=== PATIENT | male | born 1985 | race Hispanic/Latino ===

== ENCOUNTER 2023-09-20 11:58 | Inpatient (IN) | payer OTHER ==
[~2023-09-20] VITALS: Ht 157.5 cm; Wt 75.3 kg
[2023-09-20 13:14] LABS: BASOPHILS # (AUTO) 0.04 K/uL (0.00-0.20); BASOPHILS % (AUTO) 0.7 % (0.0-5.0); EOSINOPHILS # (AUTO) 0.15 K/uL (0.00-0.70); EOSINOPHILS % (AUTO) 2.4 % (0.0-8.0); HEMATOCRIT 40.2 % (42-54); IMMATURE GRANULOCYTE ABSOLUTE 0.03 K/uL (0-1); LYMPHOCYTES # (AUTO) 1.9 K/uL (1.0-4.8); LYMPHOCYTES % (AUTO) 30.1 % (21.0-51.0); MEAN CORPUSCULAR HGB CONC 35.6 g/dL (32.0-36.0); MEAN CORPUSCULAR VOLUME 95.7 fL (79-99); MONOCYTES # (AUTO) 0.4 K/uL (0.1-1.0); MONOCYTES % (AUTO) 7.2 % (3.0-13.0); NEUTROPHILS # (AUTO) 3.6 K/uL (1.8-7.7); NEUTROPHILS % (AUTO) 59.1 % (40.0-77.0); PLATELET COUNT (AUTO) 271 K/uL (130-400); RED CELL DISTRIBUTION WIDTH 10.6 % (11.0-15.5); WHITE BLOOD COUNT (AUTO) 6.1 K/uL (4.8-10.8)
[2023-09-20 13:32] LABS: ALBUMIN 2.9 g/dL (3.5-5.0); BILIRUBIN,TOTAL 0.3 mg/dL (0.2-1.0); CREATININE 0.6 mg/dL (0.5-1.3); POTASSIUM 3.9 mmol/L (3.5-5.1); TOTAL PROTEIN, SERUM 7.8 g/dL (6.0-8.3)
[2023-09-20 14:04] LABS: APPEARANCE,URINE CLEAR (CLEAR); BILIRUBIN,URINE NEGATIVE (NEGATIVE); GLUCOSE, URINE (UA) >=1000 mg/dL (NEGATIVE); KETONES,URINE NEGATIVE (NEGATIVE); LEUKOCYTE ESTERASE ,URINE NEGATIVE Leu/uL (NEGATIVE); NITRATE,URINE NEGATIVE (NEGATIVE); OCCULT BLOOD,URINE NEGATIVE (NEGATIVE); PH,URINE 7.5 (5.0-8.0); PROTEIN,URINE NEGATIVE (NEGATIVE); UROBILINOGEN,URINE 0.2 mg/dL (0.2-1.0)
[2023-09-20 14:05] LABS: ADD UA MICROSCOPIC YES; COLOR,URINE LIGHT-YELLOW (YELLOW)
[2023-09-20 14:06] LABS: BACTERIA,URINE RARE /HPF (None Seen); RBC,URINE 0-1 /HPF (0-1)
[2023-09-20] MEDS: 0.9%NACL 1000ML 1,000 ML IV ONE (14:09)
[2023-09-20] MEDS: INSULIN HUMULIN R 100 UNIT/ML 3ML IV ONE (15:09)
[2023-09-20] MEDS: CEFEPIME HCL 2 GM VIAL IVPB SCH (15:44)
[2023-09-20] MEDS ORDERED: HYDRALAZINE 20MG/ML VIAL IV PRN (16:00)
[2023-09-20] MEDS: AMLODIPINE 5 MG TAB PO ONE (16:14)
[2023-09-20 16:24] LABS: AMPHET/METH SCREEN,URINE NEGATIVE (NEGATIVE); BARBITURATE SCREEN, URINE NEGATIVE (NEGATIVE); BENZODIAZEPINES SCREEN,URINE NEGATIVE (NEGATIVE); CANNABINOID SCREEN,URINE POSITIVE (NEGATIVE); COCAINE SCREEN,URINE NEGATIVE (NEGATIVE); OPIATE SCREEN,URINE NEGATIVE (NEGATIVE); PHENCYCLIDINE SCREEN,URINE NEGATIVE (NEGATIVE)
[2023-09-20 16:26] LABS: HEMOGLOBIN A1C 12.2 % (4.0-6.0)
[2023-09-20] MEDS: THIAMINE HCL 100 MG, FOLIC ACID 1 MG, M.V.I. IV [ADULT] 10 ML in 0.9%NACL 1000ML 1,000 ML IV SCH (16:27)
[2023-09-20] MEDS ORDERED: CHLORDIAZEPOXIDE HCL 25 MG CAP PO PRN (16:30)
[2023-09-20] MEDS ORDERED: ACETAMINOPHEN 500 MG TABLET PO PRN (16:30)
[2023-09-20] MEDS ORDERED: PHARMACY COMMUNICATION MISC PRN (16:30)
[2023-09-20] MEDS ORDERED: LORAZEPAM 2 MG/ML 1 ML VIAL IVP PRN (16:30)
[2023-09-20 16:34] LABS: THYROID STIMULATING HORMONE 1.41 uIU/mL (0.36-3.74)
[2023-09-20 17:30] VITALS: O2SAT 97
[2023-09-20 17:33] VITALS: BP 133/95; PULSE 71; RESP 17
[2023-09-20] MEDS: INSULIN HUMULIN R 100 UNIT/ML 3ML SQ SCH (18:00)
[2023-09-20 19:13] VITALS: O2SAT 98
[2023-09-20 20:07] VITALS: BP 153/92; PULSE 71; RESP 19
[2023-09-20] MEDS: DOXYCYCLINE HYCLATE 100 MG TABLET PO SCH (20:44)
[2023-09-20] MEDS: FAMOTIDINE 20MG VIAL IV SCH (20:44)
[2023-09-20 23:32] VITALS: BP 145/90; PULSE 81; RESP 18
[2023-09-21] VITALS (9 sets, daily range): BP systolic 119–148; BP diastolic 71–86; PULSE 48–88; RESP 16–18; O2SAT 99
[2023-09-21 06:32] LABS: BASOPHILS # (AUTO) 0.04 K/uL (0.00-0.20); BASOPHILS % (AUTO) 0.5 % (0.0-5.0); EOSINOPHILS # (AUTO) 0.25 K/uL (0.00-0.70); EOSINOPHILS % (AUTO) 3.4 % (0.0-8.0); HEMATOCRIT 39.4 % (42-54); IMMATURE GRANULOCYTE ABSOLUTE 0.05 K/uL (0-1); LYMPHOCYTES % (AUTO) 27.5 % (21.0-51.0); MEAN CORPUSCULAR HEMOGLOBIN 33.8 pg (27.0-33.0); MEAN CORPUSCULAR HGB CONC 35.5 g/dL (32.0-36.0); MEAN CORPUSCULAR VOLUME 95.2 fL (79-99); MONOCYTES # (AUTO) 0.6 K/uL (0.1-1.0); MONOCYTES % (AUTO) 7.7 % (3.0-13.0); NEUTROPHILS # (AUTO) 4.4 K/uL (1.8-7.7); NEUTROPHILS % (AUTO) 60.2 % (40.0-77.0); PLATELET COUNT (AUTO) 257 K/uL (130-400); RED BLOOD CELL COUNT(AUTO) 4.14 MIL/uL (4.50-6.20); RED CELL DISTRIBUTION WIDTH 10.6 % (11.0-15.5); WHITE BLOOD COUNT (AUTO) 7.3 K/uL (4.8-10.8)
[2023-09-21 06:50] LABS: ALBUMIN 2.7 g/dL (3.5-5.0); BILIRUBIN,TOTAL 0.3 mg/dL (0.2-1.0); CREATININE 0.5 mg/dL (0.5-1.3); POTASSIUM 3.7 mmol/L (3.5-5.1); TOTAL PROTEIN, SERUM 7.3 g/dL (6.0-8.3)
[2023-09-21] MEDS: CEFTRIAXONE 2GM VIAL IVPB SCH (08:59)
[2023-09-21] MEDS: AMLODIPINE 5 MG TAB PO SCH (09:00)
[2023-09-21] MEDS: INSULIN HUMULIN R 100 UNIT/ML 3ML SQ SCH (11:27)
[2023-09-21] MEDS: KETOROLAC 30MG VIAL (30MG/ML) IVP ONE (13:14)
[2023-09-21] MEDS ORDERED: VANCOMYCIN KIT 1 GM/250 ML IV.KIT IV SCH (13:30)
[2023-09-21] MEDS ORDERED: VANCOMYCIN PROTOCOL PER PHARMACY IV SCH (13:30)
[2023-09-21] MEDS: VANCOMYCIN 2GM/500 ML BAG 500 ML IV ONE (13:44)
[2023-09-21] MEDS: INSULIN GLARGINE 100 UNITS/ML 10 ML VIAL SQ SCH (20:37)
[2023-09-21] MEDS: HYDROCODONE/ACETAMINOPHEN 5/325 MG TAB PO PRN (20:40)
[2023-09-21] MEDS: VANCOMYCIN 1.25 GM/250 ML BAG 250 ML IV SCH (22:59)
[2023-09-22] VITALS (8 sets, daily range): BP systolic 114–134; BP diastolic 71–85; PULSE 76–85; RESP 17–18; O2SAT 94–99
[2023-09-22 05:29] LABS: BASOPHILS # (AUTO) 0.04 K/uL (0.00-0.20); BASOPHILS % (AUTO) 0.7 % (0.0-5.0); EOSINOPHILS % (AUTO) 5.1 % (0.0-8.0); HEMATOCRIT 39.7 % (42-54); IMMATURE GRANULOCYTE ABSOLUTE 0.05 K/uL (0-1); LYMPHOCYTES # (AUTO) 2.6 K/uL (1.0-4.8); LYMPHOCYTES % (AUTO) 44.1 % (21.0-51.0); MEAN CORPUSCULAR HEMOGLOBIN 33.9 pg (27.0-33.0); MEAN CORPUSCULAR HGB CONC 35.5 g/dL (32.0-36.0); MEAN CORPUSCULAR VOLUME 95.4 fL (79-99); MONOCYTES # (AUTO) 0.7 K/uL (0.1-1.0); MONOCYTES % (AUTO) 12.5 % (3.0-13.0); NEUTROPHILS # (AUTO) 2.2 K/uL (1.8-7.7); NEUTROPHILS % (AUTO) 36.8 % (40.0-77.0); PLATELET COUNT (AUTO) 281 K/uL (130-400); RED BLOOD CELL COUNT(AUTO) 4.16 MIL/uL (4.50-6.20); RED CELL DISTRIBUTION WIDTH 10.6 % (11.0-15.5); WHITE BLOOD COUNT (AUTO) 5.9 K/uL (4.8-10.8)
[2023-09-22 05:51] LABS: CREATININE 0.5 mg/dL (0.5-1.3); POTASSIUM 3.9 mmol/L (3.5-5.1); VANCOMYCIN TROUGH 13.3 UG/ML (10.0-20.0)
[2023-09-22] MEDS: ENOXAPARIN SODIUM 40 MG/0.4 ML SYRINGE SQ SCH (08:25)
[2023-09-22] MEDS ORDERED: COMPOUND IV REFRIGERATED 1 EACH IVSOLN MISC PRN (12:30)
[2023-09-23 04:37] VITALS: BP 113/73; PULSE 69; RESP 18
[2023-09-23 05:01] LABS: BASOPHILS # (AUTO) 0.03 K/uL (0.00-0.20); BASOPHILS % (AUTO) 0.4 % (0.0-5.0); EOSINOPHILS # (AUTO) 0.26 K/uL (0.00-0.70); EOSINOPHILS % (AUTO) 3.6 % (0.0-8.0); HEMATOCRIT 38.5 % (42-54); IMMATURE GRANULOCYTE ABSOLUTE 0.08 K/uL (0-1); LYMPHOCYTES # (AUTO) 2.7 K/uL (1.0-4.8); LYMPHOCYTES % (AUTO) 37.3 % (21.0-51.0); MEAN CORPUSCULAR HEMOGLOBIN 33.6 pg (27.0-33.0); MEAN CORPUSCULAR HGB CONC 36.1 g/dL (32.0-36.0); MONOCYTES # (AUTO) 0.8 K/uL (0.1-1.0); MONOCYTES % (AUTO) 10.6 % (3.0-13.0); NEUTROPHILS # (AUTO) 3.4 K/uL (1.8-7.7); PLATELET COUNT (AUTO) 309 K/uL (130-400); RED BLOOD CELL COUNT(AUTO) 4.14 MIL/uL (4.50-6.20); RED CELL DISTRIBUTION WIDTH 10.6 % (11.0-15.5); WHITE BLOOD COUNT (AUTO) 7.1 K/uL (4.8-10.8)
[2023-09-23 05:12] LABS: CREATININE 0.5 mg/dL (0.5-1.3); POTASSIUM 3.6 mmol/L (3.5-5.1)
[2023-09-23 08:00] VITALS: BP 121/17; PULSE 83; RESP 17; O2SAT 96
[2023-09-23] MEDS: LISINOPRIL 2.5 MG TABLET PO SCH (09:22)
[2023-09-23 12:00] VITALS: BP 136/92; PULSE 78; RESP 18
[2023-09-23] MEDS ORDERED: DOXY100T2 PO (14:42)
[2023-09-23] MEDS ORDERED: METF-444 PO (14:48)
[2023-09-23] MEDS ORDERED: INSLAN SQ (14:48)
== END 2023-09-23 16:30 | disposition home or self-care (01) | DRG 603 ==
LOC: EDH 11:58 → EDHIP 16:06 → OBSVTOIN 16:06 → 4CH 16:43 → DAHIP 16:52 → 4CH 16:55
PROVIDERS: ADMIT Internal Medicine; ATTEND Internal Medicine
PROC: 0Y993ZZ Drainage of Right Lower Extremity, Percutaneous Approach (ICD-10-PCS; principal; 2023-09-22)
DX: L03.115 Cellulitis of right lower limb (principal); L02.415 Cutaneous abscess of right lower limb; E11.65 Type 2 diabetes mellitus with hyperglycemia; E66.9 Obesity, unspecified; I10 Essential (primary) hypertension; K76.0 Fatty (change of) liver, not elsewhere classified; B95.61 Methicillin susceptible Staphylococcus aureus infection as the cause of diseases classified elsewhere; N05.9 Unspecified nephritic syndrome with unspecified morphologic changes; F10.90 Alcohol use, unspecified, uncomplicated; Z68.30 Body mass index [BMI] 30.0-30.9, adult; Z91.199 Patient's noncompliance with other medical treatment and regimen due to unspecified reason
CPT/HCPCS: 36415; 71045; 73590; 76705; 80048; 80053; 80202; 80305; 81001; 82010; 82948; 83036; 83605; 84145; 84443; 85025; 86140; 87040; 87070; 87076; 93306; G0378; J0692; J0696; J1650; J1815; J1885; J3411; J3490; J7030; 3370; J3370

== ENCOUNTER 2024-02-16 19:22 | Emergency (ER) | payer OTHER ==
[~2024-02-16] VITALS: Ht 157.5 cm; Wt 76.7 kg
[~2024-02-16 19:22] MED LIST: DOXY100T2 PO; INSLAN SQ; METF-444 PO
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
--- NOTE | 2024-02-16 20:46 | HMCIMG ---
CT CERVICAL SPINE W/O CONTRAST CLINICAL HISTORY: PAIN COMPARISON: None TECHNIQUE: Sequential axial images of cervical spine without contrast and with sagittal and coronal reconstructions. CT was performed with one or more of the following dose reduction techniques: automated exposure control, adjustment of the mA and/or kV according to patient size, or use of iterative reconstruction technique FINDINGS: There is normal alignment of cervical vertebrae. There is no vertebral body height loss or fractures. The prevertebral soft tissue is unremarkable. The dens and periodontic space are within normal limits.The central canal and neuroforamen are patent. IMPRESSION: Normal study
[2024-02-16] MEDS: dexaMETHasone SOD PHOSPHATE 4 MG/ML 1ML VIAL IARTIC ONE (20:49)
[2024-02-16] MEDS: ketOROlac 60 MG VIAL (30MG/ML) IM ONE (20:49)
--- NOTE | 2024-02-16 21:13 | HMCIMG ---
CT LUMBAR SPINE W/O CONTRAST CLINICAL HISTORY: PAIN TECHNIQUE: Sequential axial images of lumbar spine without contrast and with sagittal and coronal reconstructions. CT was performed with one or more of the following dose reduction techniques: automated exposure control, adjustment of the mA and/or kV according to patient size, or use of iterative reconstruction technique COMPARISON: None FINDINGS: There is normal alignment lumbar vertebrae. There is chronic wedging of the L1 vertebrae with no identified acute vertebral body height loss. The paraspinal soft tissues are unremarkable. IMPRESSION: There are no acute findings. Chronic mild wedge deformity of L1.
[2024-02-16] MEDS ORDERED: CYCL-309 PO (21:32)
[2024-02-16 21:34] VITALS: BP 148/95; PULSE 90; RESP 16; TEMP 98.5; O2SAT 98
== END 2024-02-16 21:42 | disposition home or self-care (01) ==
LOC: EDH 19:22
DX: S13.4XXA Sprain of ligaments of cervical spine, initial encounter (principal); S33.5XXA Sprain of ligaments of lumbar spine, initial encounter; E11.9 Type 2 diabetes mellitus without complications; I10 Essential (primary) hypertension; Z79.84 Long term (current) use of oral hypoglycemic drugs; V89.2XXA Person injured in unspecified motor-vehicle accident, traffic, initial encounter; Y93.89 Activity, other specified; Y92.89 Other specified places as the place of occurrence of the external cause; Y99.8 Other external cause status
CPT/HCPCS: 99285; 72125; 72131; 96372 ×2; J1100; J1885